=== PATIENT | female | born 1950 | race Two or more races ===

== ENCOUNTER 2022-05-19 18:46 | Emergency (ER) | payer MEDICARE, OTHER ==
[~2022-05-19] VITALS: Ht 157.5 cm; Wt 89.0 kg
[2022-05-19] MEDS ORDERED: cloNIDine HCL 0.1 MG TAB PO ONE (19:45)
[2022-05-19 20:11] LABS: Basophils # (auto) 0.1 10 ^3/uL (0-0.2); Eosinophils # (auto) 0.3 10 ^3/uL (0-0.8); Eosinophils % (auto) 4.5 % (0.0-7.0); Hematocrit 38.7 % (36.0-46.0); Lymphocytes # (auto) 1.9 10 ^3/uL (0.4-5.4); Lymphocytes % (auto) 31.7 % (10.0-50.0); Mean Corpuscular Hemoglobin 30.5 pg (28.0-32.0); Mean Corpuscular Hgb Conc. 33.7 g/dL (32.0-36.0); Mean Corpuscular Volume 90.4 fL (80.0-100.0); Monocytes # (auto) 0.3 10 ^3/uL (0-1.3); Monocytes % (auto) 5.6 % (0.0-12.0); Neutrophils # (auto) 3.5 10 ^3/uL (1.6-8.6); Neutrophils % (auto) 57.2 % (37.0-80.0); Nucleated Red Blood Cells % 0.1 %; Red Blood Cells 4.28 10^6/uL (4.0-5.20); Red Cell Distribution Width 12.6 % (11.8-14.3); White Blood Cell 6.1 10^3/uL (4.4-10.8)
[2022-05-19 20:37] LABS: Albumin 3.5 g/dL (3.4-5.0); Potassium 4.9 mmol/L (3.5-5.1)
[2022-05-19 20:40] LABS: Bilirubin, Total 0.4 mg/dL (0.2-1.0)
[2022-05-19 23:58] VITALS: BP 166/77
== END 2022-05-19 23:55 | disposition left against medical advice (07) ==
LOC: ER 18:46
DX: I10 Essential (primary) hypertension (principal); R51.9 Headache, unspecified; R00.2 Palpitations; Z88.6 Allergy status to analgesic agent
CPT/HCPCS: 36415; 70450; 71045; 80053; 84484; 85025

== ENCOUNTER → 2024-03-20 | Outpatient (CLI) | payer MEDICARE | END | disposition home or self-care (01) | LOC: LAB 11:37 | PROVIDERS: ATTEND Dermatology | DX: D48.5 Neoplasm of uncertain behavior of skin (principal) ==

== ENCOUNTER → 2024-11-20 | Outpatient (CLI) | payer MEDICARE ==
[2024-11-20 09:19] LABS: Creatinine, Urine 90.62 mg/dL (30.0-125.0)
[2024-11-20 09:20] LABS: Triglycerides 120 mg/dL (< 150)
[2024-11-20 09:21] LABS: LDL Cholesterol 70 mg/dL (< 100)
[2024-11-20 09:22] LABS: Cholesterol 131 mg/dL (< 200); HDL Cholesterol 42 mg/dL (40-59)
== END | disposition home or self-care (01) ==
LOC: LAB 08:30
PROVIDERS: ATTEND Internal Medicine
DX: E11.22 Type 2 diabetes mellitus with diabetic chronic kidney disease (principal); N18.9 Chronic kidney disease, unspecified; E11.69 Type 2 diabetes mellitus with other specified complication
CPT/HCPCS: 36415; 80061; 82043; 82570; 83036

== ENCOUNTER 2024-12-30 08:44 | Outpatient (CLI) | payer OTHER ==
[~2024-12-30] VITALS: Ht 157.5 cm; Wt 88.5 kg
[2024-12-30] MEDS: METOPROLOL TARTRATE 1MG/1ML-5ML VIAL IV ONE (09:43)
[2024-12-30] MEDS: REGADENOSON 0.4 MG/5 ML SYRG IV ONE ×2 (09:50→10:14)
--- NOTE | 2024-12-31 12:53 | DVHSR ---
APPROVED REPORT Exam: Nuclear Stress Test Indication: Chest pain Stress Tech: Lisa Gutierrez Ht: 5 ft 2 in Wt: 195 lbs BSA: 1.89 m2 HR: 75 bpm BP: 157/69 mmHg BMI: 35.66 Rhythm: NSR Medical History Medical History: HTN, DM2, RIGHT SUPRACLAVICULAR MASS Allergies: CODINE Stress Test Details Stress Test: Pharmacologic stress testing performed using 0.4 mg of regadenoson per 5 mL given IV ov er 10 seconds. Reason for pharmacologic stress test: CHEST PAIN. HR Resting HR: 75 bpmMax Heart Rate (APMHR): 148.013724 bpm Max HR Achieved: 85 bpmTarget HR (85% APMHR): 125.805632 bpm % of APMHR: 57.43 Recovery HR: 77 bpm BP Resting BP: 157/69 mmHg Recovery BP: 144/64 mmHg ECG Resting ECG: NSR Clinical Reason for Termination: Completed protocol Nurse Comments UNEVENTFUL STRESS TEST PERFORMED PER PROTOCOL. PATIENT TOLERATED WELL AND TAKEN BACK TO NUCLEAR MEDIC INE VIA WHEELCHAIR IN STABLE CONDITION WITH TECH. Stress ECG Conclusion lvef 71% normal perfusion scan NM EXAM: Myocardial Perfusion REST/STRESS Imaging Protocol: Rest Tc-99m/Stress Tc-99m 1 day Resting Data Rest SPECT myocardial perfusion imaging was performed in supine position 45 minutes following the int ravenous injection of 12.0 mCi of Tc-99m Sestamibi. Time of rest injection: 09:00 Date: 12/30/2024 Time of rest imagin:45 Date: 12/30/2024 Administration Route: IV Administration Site: Left Hand Pharmacologic Stress Pharmacologic stress test was performed by injecting Regadenoson 0.4 mg IV push followed by the intra venous injection of 31.7 mCi of Tc-99m Sestamibi. Time of stress injection: 10:10 Date: 12/30/2024 Time of stress imagin:55 Date: 12/30/2024 Administration Route: IV Administration Site: Left Hand Gated Stress SPECT was performed 45 minutes after stress injection. The images were gated to evaluate regional wall motion and calculate left ventricular ejection fracti on. Stress only was performed in the Supine position. Nuclear Conclusion Nuclear Findings: negative for ischemia lvef 71% normal perfusion scan
== END 2024-12-30 17:00 | disposition home or self-care (01) ==
LOC: XYW 08:44
PROVIDERS: ATTEND Internal Medicine
DX: R07.9 Chest pain, unspecified (principal); R06.02 Shortness of breath; I10 Essential (primary) hypertension; E11.65 Type 2 diabetes mellitus with hyperglycemia; R22.2 Localized swelling, mass and lump, trunk
CPT/HCPCS: 78452; 93017; A9500; J2785

== ENCOUNTER → 2025-04-09 | Outpatient (CLI) | payer OTHER ==
[2025-04-09 09:29] LABS: Potassium 4.5 mmol/L (3.5-5.1); Sodium 143 mmol/L (136-145)
[2025-04-09 09:30] LABS: Anion Gap 9 (5-15); Calcium 9.5 mg/dL (8.7-10.4); Carbon Dioxide 27 mmol/L (20-31)
[2025-04-09 09:35] LABS: BUN/Creatinine Ratio 10.0 (10.0-20.0); Blood Urea Nitrogen 10 mg/dL (9-23); Triglycerides 129 mg/dL (< 150)
[2025-04-09 09:37] LABS: Cholesterol 128 mg/dL (< 200); HDL Cholesterol 42 mg/dL (40-59)
[2025-04-09 09:41] LABS: Chloride 107 mmol/L (98-107); Glucose 179 mg/dL (74-106)
== END | disposition home or self-care (01) ==
LOC: LAB 08:36
PROVIDERS: ATTEND Internal Medicine
DX: E11.22 Type 2 diabetes mellitus with diabetic chronic kidney disease (principal); N18.2 Chronic kidney disease, stage 2 (mild); E78.2 Mixed hyperlipidemia; R26.9 Unspecified abnormalities of gait and mobility; Z12.11 Encounter for screening for malignant neoplasm of colon
CPT/HCPCS: 36415; 80048; 80061; 83036

== ENCOUNTER 2025-04-15 09:45 | Outpatient (CLI) | payer OTHER ==
[2025-04-15 10:32] LABS: Urine Budding Yeast OCCASIONAL /hpf (None Seen); Urine Protein, UAD Negative (Negative)
== END 2025-04-15 17:00 | disposition home or self-care (01) ==
LOC: LAB 09:45
PROVIDERS: ATTEND Internal Medicine
DX: E11.22 Type 2 diabetes mellitus with diabetic chronic kidney disease (principal); N18.2 Chronic kidney disease, stage 2 (mild); E78.2 Mixed hyperlipidemia; R26.9 Unspecified abnormalities of gait and mobility; Z12.11 Encounter for screening for malignant neoplasm of colon
CPT/HCPCS: 81001; 82274